=== PATIENT | male | born 1960 | race Caucasian/White ===

== ENCOUNTER → 2017-01-24 | Outpatient (CLI) | payer OTHER ==
[~2017-01-24] MED LIST: BACTRIM DS 8001 TAB PO; JENTADUETO 2.51 TAB PO; LEVAQUIN 5500 MG/TA1 PO; LEVEMIR SQ; PERCOCET 325 MG1 TA2 PO; ULTRAM 50MG TAB50 MG PO
== END ==
LOC: COL.RAD 10:53
DX: C64.2 Malignant neoplasm of left kidney, except renal pelvis (principal); Z90.5 Acquired absence of kidney; D38.1 Neoplasm of uncertain behavior of trachea, bronchus and lung
CPT/HCPCS: Q9967

== ENCOUNTER → 2017-05-23 | Outpatient (CLI) | payer SELFPAY | LOC: COL.RAD 05-20 13:00 | DX: R91.8 Other nonspecific abnormal finding of lung field (principal); Z90.5 Acquired absence of kidney; Z85.528 Personal history of other malignant neoplasm of kidney; Z79.4 Long term (current) use of insulin | CPT/HCPCS: Q9967 ==

== ENCOUNTER 2018-09-19 09:00 | Inpatient (IN) | payer SELFPAY ==
[~2018-09-19] VITALS: Ht 172.7 cm; Wt 88.0 kg
[2018-09-19 09:40] LABS: BASO % 0.3 % (0.0-2.0); EOS # 0.1 (0.0-0.7); EOS % 1.6 % (0-4.0); GRAN # 6.8 (1.4-6.5); GRAN % 75.2 % (42.2-75.2); HEMATOCRIT 45.7 % (42.0-52.0); HEMOGLOBIN 15.1 g/dl (13.5-18.0); LYMPH # 1.3 (1.2-3.4); LYMPH % 14.8 % (20.0-51.0); MEAN CELL VOLUME 92 fl (80.0-100.0); MEAN CORPUSCULAR HEMOGLOBIN 30 pg (27.0-31.0); MEAN CORPUSCULAR HGB CONC 33 g/dl (33.0-37.0); MEAN PLATELET VOLUME 9.6 fl (7.4-10.4); MONO # 0.7 (0.1-0.6); MONO % 7.8 % (1.7-9.3); PLATELET COUNT 320 K/mm3 (130-400); RED BLOOD COUNT 4.97 M/mm3 (4.20-5.60); REDCELL DISTRIBUTION WIDTH-CV 13.2 % (11.5-14.5)
[2018-09-19] MEDS ORDERED: PREDNISONE10 MG PO (09:45)
[2018-09-19] MEDS ORDERED: LEVAQUIN 750MG750 M1 PO (09:46)
[2018-09-19] MEDS ORDERED: MUCUS RELIEF400 M1 PO (09:46)
[2018-09-19] MEDS ORDERED: EPA FISH OIL1 SGL PO (09:47)
[2018-09-19] MEDS ORDERED: JENTADUETO 2.51 TAB PO (09:47)
[2018-09-19] MEDS ORDERED: LEVEMIR100 U/ML SQ (09:47)
[2018-09-19] MEDS ORDERED: ASPIRIN 81M81 MG/TA2 PO (09:48)
[2018-09-19] MEDS ORDERED: PRAVACHOL 20MG20 MG PO (09:48)
[2018-09-19] MEDS ORDERED: CENTRUM SILVER1 CTB PO (09:48)
[2018-09-19 10:17] LABS: ALANINE AMINOTRANSFERASE 34 U/L (21-72); ALBUMIN 3.4 gm/dL (3.5-5.0); ALKALINE PHOSPHATASE 60 U/L (50-136); ANION GAP 4 mmol/L (7-16); AST,SGOT 21 U/L (15-37); BILIRUBIN,TOTAL 0.3 mg/dL (0.0-1.0); BLOOD UREA NITROGEN 22 mg/dL (9-20); C-REACTIVE PROTEIN 2.2 mg/dL (0.0-0.9); CALCIUM 8.7 mg/dL (8.4-10.2); CARBON DIOXIDE 27 mmol/L (22-30); CHLORIDE 110 mmol/L (98-107); CREATININE, serum 0.83 mg/dL (0.66-1.25); GLUCOSE 127 mg/dL (74-106); POTASSIUM 4.6 mmol/L (3.4-5.0); SODIUM 140 mmol/L (137-145); TOTAL PROTEIN 6.6 gm/dL (6.4-8.2)
[2018-09-19 10:28] LABS: TROPONIN-I < 0.012 ng/mL (0.000-0.034)
[2018-09-19 11:16] LABS: INR 1.1 (0.8-3.0)
[2018-09-19 11:19] LABS: PARTIAL THROMBOPLASTIN TIME 34.2 SECONDS (26.0-37.0)
[2018-09-19 12:16] VITALS: BP 138/80; PULSE 97; TEMP 97.8
[2018-09-19 16:02] LABS: GLUCOSE,PLEURAL FLUID 156 mg/dL; TOTAL PROTEIN,PLEURAL FLUID 4.5 gm/dL
[2018-09-19 16:06] LABS: TOTAL PROTEIN 6.5 gm/dL (6.4-8.2)
[2018-09-19 16:08] LABS: PLEURAL FLUID RBC 172000 /mm3 (0-0); PLEURAL FLUID WBC 546 /mm3
[2018-09-19 16:11] LABS: PLEURAL FLUID APPEARANCE HAZY; PLEURAL FLUID COLOR RED
[2018-09-19 16:20] VITALS: BP 135/87; PULSE 94; TEMP 97.1
[2018-09-19 19:44] VITALS: BP 130/74; PULSE 109; TEMP 97.8
[2018-09-20 00:23] VITALS: BP 105/53; PULSE 85; TEMP 98.2
[2018-09-20 04:29] VITALS: BP 118/62; PULSE 88; TEMP 98.5
[2018-09-20 06:16] LABS: BASO % 0.2 % (0.0-2.0); EOS # 0.2 (0.0-0.7); EOS % 2.3 % (0-4.0); GRAN # 6.2 (1.4-6.5); GRAN % 76.2 % (42.2-75.2); HEMOGLOBIN 15.4 g/dl (13.5-18.0); LYMPH # 1.2 (1.2-3.4); LYMPH % 15.1 % (20.0-51.0); MEAN CELL VOLUME 93 fl (80.0-100.0); MEAN CORPUSCULAR HEMOGLOBIN 30 pg (27.0-31.0); MEAN CORPUSCULAR HGB CONC 33 g/dl (33.0-37.0); MEAN PLATELET VOLUME 9.8 fl (7.4-10.4); MONO # 0.5 (0.1-0.6); PLATELET COUNT 298 K/mm3 (130-400); RED BLOOD COUNT 5.08 M/mm3 (4.20-5.60); REDCELL DISTRIBUTION WIDTH-CV 13.2 % (11.5-14.5)
[2018-09-20 06:32] LABS: ALBUMIN 3.4 gm/dL (3.5-5.0); BILIRUBIN,TOTAL 0.4 mg/dL (0.0-1.0); CALCIUM 9.1 mg/dL (8.4-10.2); CREATININE, serum 0.88 mg/dL (0.66-1.25); POTASSIUM 4.2 mmol/L (3.4-5.0); TOTAL PROTEIN 6.4 gm/dL (6.4-8.2)
[2018-09-20 07:26] VITALS: BP 119/67; PULSE 94; TEMP 98.2
[2018-09-20 11:53] VITALS: BP 136/78; PULSE 86; TEMP 97.8
[2018-09-20 16:55] VITALS: BP 119/64; PULSE 95; TEMP 97.7
[2018-09-20 20:00] VITALS: BP 122/47; PULSE 118; TEMP 98.3
[2018-09-21 04:39] VITALS: BP 134/77; PULSE 64; TEMP 97
[2018-09-21 06:27] LABS: BASO % 0.3 % (0.0-2.0); EOS # 0.3 (0.0-0.7); GRAN # 5.6 (1.4-6.5); GRAN % 72.3 % (42.2-75.2); HEMOGLOBIN 15.5 g/dl (13.5-18.0); LYMPH # 1.3 (1.2-3.4); LYMPH % 16.3 % (20.0-51.0); MEAN CELL VOLUME 93 fl (80.0-100.0); MEAN CORPUSCULAR HEMOGLOBIN 30 pg (27.0-31.0); MEAN CORPUSCULAR HGB CONC 32 g/dl (33.0-37.0); MEAN PLATELET VOLUME 9.5 fl (7.4-10.4); MONO # 0.5 (0.1-0.6); MONO % 6.7 % (1.7-9.3); PLATELET COUNT 297 K/mm3 (130-400); RED BLOOD COUNT 5.18 M/mm3 (4.20-5.60); REDCELL DISTRIBUTION WIDTH-CV 13.2 % (11.5-14.5)
[2018-09-21 06:45] LABS: CALCIUM 9.4 mg/dL (8.4-10.2); CREATININE, serum 0.88 mg/dL (0.66-1.25); POTASSIUM 4.7 mmol/L (3.4-5.0)
[2018-09-21 08:29] VITALS: BP 114/62; PULSE 120; TEMP 99.3
[2018-09-21 11:50] VITALS: BP 120/73; PULSE 109; TEMP 98.3
[2018-09-21 16:16] VITALS: BP 105/68; PULSE 99; TEMP 98.4
[2018-09-21 21:51] VITALS: BP 115/79; PULSE 103; TEMP 98.6
[2018-09-22 01:44] VITALS: BP 119/76; PULSE 98; TEMP 98.2
[2018-09-22 04:40] VITALS: BP 109/65; PULSE 95; TEMP 98
[2018-09-22 07:19] VITALS: BP 108/74; PULSE 99; TEMP 99
[2018-09-22 11:46] VITALS: BP 97/68; PULSE 104; TEMP 98.3
[2018-09-22 16:57] VITALS: BP 119/78; PULSE 108; TEMP 98.9
[2018-09-22 20:17] VITALS: BP 134/70; PULSE 108; TEMP 99.1
[2018-09-23 00:11] VITALS: BP 129/73; PULSE 101; TEMP 98.8
[2018-09-23 03:26] VITALS: BP 127/69; PULSE 104; TEMP 99.7
[2018-09-23 07:26] VITALS: BP 105/75; PULSE 98; TEMP 98.1
[2018-09-23 12:10] VITALS: BP 116/66; PULSE 100; TEMP 99.1
[2018-09-23 16:13] VITALS: BP 136/70; PULSE 94; TEMP 98.5
[2018-09-23 19:22] VITALS: BP 120/69; PULSE 114; TEMP 100.2
[2018-09-24 00:54] VITALS: BP 128/77; PULSE 110; TEMP 99.1
[2018-09-24 03:38] VITALS: BP 116/76; PULSE 102; TEMP 98.9
[2018-09-24 07:19] VITALS: BP 109/69; PULSE 105; TEMP 98.8
[2018-09-24] MEDS ORDERED: TESSALON P100 MG/CAP PO (11:30)
[2018-09-24] MEDS ORDERED: TYLENOL 325MG325 MG PO (11:30)
[2018-09-24] MEDS ORDERED: LEVAQUIN 750MG750 M1 PO (11:31)
[2018-09-24] MEDS ORDERED: ULTRAM 50MG TAB50 MG PO (11:31)
[2018-09-24 11:37] VITALS: BP 108/69; PULSE 111; TEMP 99.2
== END 2018-09-24 13:40 | disposition home or self-care (01) | DRG 188 ==
LOC: COL.ER 09:00 → SURG 10:45
PROVIDERS: Emergency Medicine; Hospitalist; Internal Medicine
PROC: 0W993ZX Drainage of Right Pleural Cavity, Percutaneous Approach, Diagnostic (ICD-10-PCS; principal; 2018-09-19)
PROC: 0W993ZX Drainage of Right Pleural Cavity, Percutaneous Approach, Diagnostic (ICD-10-PCS; 2018-09-23)
DX: J90 Pleural effusion, not elsewhere classified (principal); Z66 Do not resuscitate; E11.9 Type 2 diabetes mellitus without complications; E78.5 Hyperlipidemia, unspecified; Z87.891 Personal history of nicotine dependence; Z85.520 Personal history of malignant carcinoid tumor of kidney; R91.8 Other nonspecific abnormal finding of lung field; Z79.4 Long term (current) use of insulin
CPT/HCPCS: 99222; 99232-AI; 99233-AI; 99239; A9284; G0378; J1650; J1815; J2270

== ENCOUNTER → 2018-09-28 | Outpatient (CLI) | payer SELFPAY ==
[~2018-09-28] MED LIST changes: +ASPIRIN 81M81 MG/TA2 PO; +CENTRUM SILVER1 CTB PO; +EPA FISH OIL1 SGL PO; +LEVAQUIN 750MG750 M1 PO; +LEVEMIR100 U/ML SQ; +MUCUS RELIEF400 M1 PO; +PRAVACHOL 20MG20 MG PO; +PREDNISONE10 MG PO; +TESSALON P100 MG/CAP PO; +TYLENOL 325MG325 MG PO
== END ==
LOC: COL.RAD 13:09
DX: J90 Pleural effusion, not elsewhere classified (principal); J98.11 Atelectasis; R91.8 Other nonspecific abnormal finding of lung field

== ENCOUNTER → 2018-09-29 | Outpatient (CLI) | payer SELFPAY | LOC: COL.LAB 10:18 | DX: J90 Pleural effusion, not elsewhere classified (principal) ==

== ENCOUNTER → 2019-02-17 | Outpatient (CLI) | payer BC ==
[2019-02-17 12:35] LABS: BASO % 0.2 % (0.0-2.0); EOS # 0.1 (0.0-0.7); EOS % 0.5 % (0-4.0); GRAN % 75.5 % (42.2-75.2); HEMATOCRIT 37.2 % (42.0-52.0); HEMOGLOBIN 11.6 g/dl (13.5-18.0); LYMPH # 1.5 (1.2-3.4); MEAN CELL VOLUME 88 fl (80.0-100.0); MEAN CORPUSCULAR HEMOGLOBIN 27 pg (27.0-31.0); MEAN CORPUSCULAR HGB CONC 31 g/dl (33.0-37.0); MEAN PLATELET VOLUME 8.9 fl (7.4-10.4); MONO # 0.7 (0.1-0.6); MONO % 7.4 % (1.7-9.3); PLATELET COUNT 397 K/mm3 (130-400); RED BLOOD COUNT 4.23 M/mm3 (4.20-5.60); REDCELL DISTRIBUTION WIDTH-CV 14.8 % (11.5-14.5)
== END ==
LOC: COL.LAB 12:09
PROVIDERS: Registered Nurse
DX: J98.11 Atelectasis (principal); J18.1 Lobar pneumonia, unspecified organism; R50.82 Postprocedural fever